=== PATIENT | male | born 1985 | race Caucasian/White ===

== ENCOUNTER 2022-01-16 18:13 | Emergency (ER) | payer OTHER ==
[~2022-01-16] VITALS: Ht 167.6 cm; Wt 67.0 kg
[~2022-01-16 18:13] MED LIST: HYDR-4001 MT; TOPUD MT
[2022-01-16 18:26] VITALS: BP 117/66
== END 2022-01-16 23:00 | disposition left against medical advice (07) ==
LOC: ER 18:13
DX: Z53.21 Procedure and treatment not carried out due to patient leaving prior to being seen by health care provider (principal)